=== PATIENT | female | born 1960 | race Caucasian/White ===

== ENCOUNTER → 2019-05-20 16:50 | Outpatient (CLI) | payer SELFPAY ==
[2019-05-20 16:25] VITALS: BMI 38.2
--- NOTE | 2019-05-20 16:54 | RAD_ITS ---
STUDY: X-RAY - LEFT KNEE REASON FOR EXAM: Female, 59 years old. Fall. TECHNIQUE: 4 view(s) of the knee. COMPARISON: None. FINDINGS: There is demineralization of the visualized distal femur. There is demineralization of the tibia and fibula. Normal proximal tibiofibular articulation. There is moderate degenerative arthrosis of the medial femorotibial compartment with moderate joint space narrowing. There is mild degenerative arthrosis of the lateral femorotibial compartment. There is moderate degenerative arthrosis of the patellofemoral articulation. The soft tissue structures are unremarkable. RAD/Knee 4 or More Views IMPRESSION: Tricompartmental osteoarthrosis is but with otherwise no evidence of acute fracture. Electronically Signed: Jose Maria Ibrahim DO at 18:00 EDT , Service support ,
== END ==
PROVIDERS: PCP Family Medicine; Referring Provider Physician Assistant Surgical; Visit Provider Physician Assistant Surgical
DX: S86.912A Strain of unspecified muscle(s) and tendon(s) at lower leg level, left leg, initial encounter (principal); W19.XXXA Unspecified fall, initial encounter; M17.12 Unilateral primary osteoarthritis, left knee
CPT/HCPCS: 73564

== ENCOUNTER → 2019-07-30 09:08 | Outpatient (CLI) | payer SELFPAY ==
[2019-07-22 07:54] VITALS: BMI 38.2
--- NOTE | 2019-07-30 09:09 | MRI_ITS ---
HISTORY: mechanical injury, left knee pain mostly medial, pt fell and twisted and landed on knee EXAMINATION: MR Knee W/O Contrast TECHNIQUE: Multiplanar and multisequence MR images of the left knee. IV Contrast dosage and agent: None. COMPARISON: X-rays of the left knee from May 20, 2019 FINDINGS: BONE: Marrow edema is present within the tibial plateau, medially greater than laterally, and anteriorly greater than posteriorly. No hypointense linear fracture line is perceived. No depression of cortex is identified. There is a small amount of subcortical edema at the apex of the patella as well. JOINT: A pathological enlarged effusion is present. MUSCLES: Mild diffuse muscular atrophy with fatty infiltration MENISCI: Intrasubstance myxoid degeneration is present within the anterior horn of the lateral meniscus. There is a partial root tear to the posterior horn of the lateral meniscus. It is not retracted. There is a root avulsion radial tear through the posterior horn of the medial meniscus with some degenerative changes within the meniscus. Much of the meniscus has herniated medially out of the joint. CRUCIATE LIGAMENTS: Anterior and posterior cruciate ligaments are intact. COLLATERAL LIGAMENTS: Grade 1 tear is present at the origin of the lateral collateral ligament. Minimal intrasubstance edema and likely grade 1 tear is also present at the origin of the lateral collateral meniscus CARTILAGE: Denuding of the cartilage within the medial weightbearing compartment of the knee both the tibial plateau and on the medial femoral condyle. Focal area of cartilaginous denuding is also present at the patellar apex. Chondromalacia is present within the trochlear groove both medial and lateral facets OTHER SOFT TISSUES: Popliteal cyst is present dissecting down lateral to the medial head of the gastrocnemius and then deep to the medial head of the gastrocnemius. MRI/Lower Ext Joint Only (Routine) IMPRESSION: Radial tear root avulsion of the posterior horn of the medial meniscus. Edema likely contusion or arthritic edema within the anterior aspect of the medial portion of the tibial plateau. Cartilaginous denuding on the medial femoral condyle and medial aspect of the tibial plateau. Tiny amount of edema the apex of the patella with cartilaginous distributing chondromalacia within the trochlear groove. Knee effusion. Dutton cyst. at 0612 Reported and signed by: Dutch Alcocer MD Electronically Signed: Dutch Alcocer MD at 6:11 EST Tel , Service support ,
== END ==
PROVIDERS: PCP Family Medicine; Referring Provider Orthopaedic Surgery; Visit Provider Orthopaedic Surgery
DX: S89.92XD Unspecified injury of left lower leg, subsequent encounter (principal); S80.02XD Contusion of left knee, subsequent encounter; M25.562 Pain in left knee
CPT/HCPCS: 73721

== ENCOUNTER → 2019-08-11 06:41 | Outpatient (CLI) | payer SELFPAY ==
[2019-08-05 08:19] VITALS: BMI 38.2
--- NOTE | 2019-08-11 06:42 | CT_ITS ---
CT left knee. COMPARISON: X-ray left knee May 20, 2019 FINDINGS: There is no acute fracture or dislocation. No aggressive appearing osseous lesions are present. Moderate tricompartmental osteophytosis is present. There is lateral tracking of the patella. There is moderate narrowing of the medial joint space. There is a moderate joint effusion. The ankle is normal in appearance. Mild osteophytosis is present at the superior acetabulum. No radiopaque foreign bodies are present in the soft tissues. CT/Extremity Lower without Contra IMPRESSION: Tricompartmental degenerative changes as described above. Moderate effusion. No acute fracture or dislocation. Electronically Signed: Wong Oneil, at 19:47 EST Tel , Service support ,
== END ==
PROVIDERS: PCP Family Medicine; Referring Provider Orthopaedic Surgery; Visit Provider Orthopaedic Surgery
DX: M17.12 Unilateral primary osteoarthritis, left knee (principal)
CPT/HCPCS: 73700

== ENCOUNTER 2019-09-06 13:44 | Observation (INO) | payer SELFPAY ==
[2019-08-05 08:19] VITALS: BMI 38.2
[2019-08-22 12:59] VITALS: BMI 38.2
[2019-08-30 10:07] VITALS: BP 133/89; PULSE 77; RESP 16; TEMP 36.8; O2SAT 94; BMI 37.3
--- NOTE | 2019-08-30 10:19 | SDCEKG_ITS ---
Test Reason : Blood Pressure : / mmHG Vent. Rate : 064 BPM Atrial Rate : 064 BPM P-R Int : 166 ms QRS Dur : 084 ms QT Int : 398 ms P-R-T Axes : -02 035 031 degrees QTc Int : 410 ms Normal sinus rhythm with sinus arrhythmia Normal ECG Confirmed by MARIE KHANNA, SUELLEN ([id number]), editor & co founder NEO MCGILL ([id number]) on 09/06/2019 8:11:01 AM Referred By: Manpreet Pollock Confirmed By:SUELLEN SALAZAR MD
[2019-09-06] VITALS (20 sets, daily range): BP systolic 92–130; BP diastolic 51–85; PULSE 43–69; RESP 14–114; TEMP 36.1–37.2; O2SAT 95–100; BMI 37.3
[2019-09-06 06:01] LABS: Bedside Glucose 103 mg/dL (70-110)
[2019-09-06] MEDS: Acetaminophen 500 MG Tablet 1000 MG PO ×3 (06:07→21:00)
[2019-09-06] MEDS: Celecoxib 200 MG Capsule 400 MG PO (06:07)
[2019-09-06] MEDS: Gabapentin 600 MG Tablet PO (06:07)
[2019-09-06] MEDS: Scopolamine 1mg/72hr Patch 1 PATCH TRANSDERM. (06:08)
[2019-09-06] MEDS: Magnesium Sulfate 4gm/100mL 4 GM/100 ML IV.SOLN. IV (06:20)
[2019-09-06] MEDS: Lactated Ringers 1,000 ML 100 ML IV (06:21)
[2019-09-06] MEDS: Cefazolin 2 GM in 0.9% Normal Saline 100 ML IV (07:29)
--- NOTE | 2019-09-06 07:31 | PCM.HP.BLA ---
History and Physical Date of Admission: 09/06/19 Intake Vital Signs 08/22/19 BMI 38.2 Intake Visit Reasons: left knee Allergies No Known Allergies Allergy (Verified 05/30/19 08:48) Medications acetaminophen 325 mg capsule 325 mg PO Q6H 05/20/19 [History Confirmed 08/22/19] ibuprofen 200 mg tablet 200 mg PO Q6H 05/20/19 [History Confirmed 08/22/19] PFSH Medical History (Updated 05/20/19 @ 17:50 by JANNETTE Schofield) Difficulty balancing (Acute) Fatigue (Acute) Knee pain (Acute) Limb weakness (Acute) child (Acute) Social History (Updated 08/23/19 @ 15:39 by JANNETTE Ashby) Smoking Status: Never smoker alcohol intake: never HPI left knee: Details: Parts of this documentation were recorded by a scribe, this documentation accurately reflects the service provided and the decisions made by Ganesh dejesus PA 08/22/19 1256. KEILA ENCISO is a 59 year old F here today for left knee Iovera tx prior to left TKA. DOS is set for 09/06/2019 Denies numbness, tingling or other associated symptoms. Denies any changes in medications or health history. ROS Musc Reports joint pain, Reports joint swelling Skin/Breast Reports system reviewed and no additional complaints, except as docu Neuro Yes system reviewed and no additional complaints, except as docu Ortho Exam Left Knee Skin/Wound: No ecchymosis, No erythema, No swelling Homans Sign: No 1+: Effusion Knee ROM: No ROM-Extension -20 to 0, No ROM-Flexion 0-140 (approx 110) Examination: Yes med jt line tenderness, No Lat jt line tenderness Stability: NML: Posterior Drawer, NML: Valgus 30, NML: Varus 30 Patella Grind: No Office Procedures Iovera Details:: Preoperative diagnosis : Osteoarthritis of left knee Postoperative diagnosis: Same Procedure: Cryotherapy with Iovera device to anterior femoral cutaneous nerve and 2 branches of the infrapatellar saphenous nerve III nerves in total Description of procedure: Patient was brought back to the procedure room the operative extremity was identified by both patient and physician. The PIP flexion crease was measured to the midpoint of the patella and this distance was divided in 3 resulting in 10 cm location proximal to the midpoint of the patella. This line was extended medial and lateral to the extent of the edges of the patella. This was our treatment line for the anterior femoral cutaneous nerve. A second treatment line was made 5 cm medial to the inferior pole of the patella and 5 cm distally. The leg was prepped with alcohol and Betadine. Lidocaine with epi was used along the treatment lines. Using the Iovera device treatment lines were treated with 1 minute cycles. Reproduction of paresthesias was monitored in the area of nerve distribution. Once all 3 nerves were treated across the 2 treatment lines patient was cleaned and a light dressing with 4 x 4 and Marshal wrap was applied. Patient tolerated the procedure without complication. Assessment & Plan Problems 1. Primary osteoarthritis of left knee M17.12 Plan Patient presents the office today for Iovera of the left knee prior to robotic assisted total knee arthroplasty. At this time we discussed this procedure and went through all the steps today. I did answer all of her questions regarding this procedure today. After all of her questions were answered to her satisfaction consent was signed in office today. At this time we went ahead with the treatment protocol. The leg was initially cleansed with alcohol soaked gauze pads. A sterile skin pen was then used to rosmery out the landmarks including the mid patella. That mid patella rosmery was then used to make the proximal treatment line using a one third the distance from the medial patella to the inguinal crease. The lateral and medial borders of the patella were then extended along this same line to the same one third distance. A horizontal line was then drawn indicating treatment line here. From there the treatment line was then drawn on the medial aspect of the lower leg taken 5 cm medial to the inferior pole of the patella and then 5 cm distal. Once these areas were marked and alcohol prep pad was used to wipe the area and then Betadine prep sticks were then used over the treatment area x3. An alcohol prep pad was then used to wipe off the Betadine at the treatment line. The area was then superficially anesthetized subcutaneously. Alcohol pad was then used to press on the areas that were wheeled up dispersing the contents. I did apply some sterile gloves at that point in treatment was performed on the proximal treatment line. This was then repeated on the vertical (inferior/medial) treatment line. The areas were then covered with sterile ABD pads and wrapped with an Marshal wrap. Patient is to monitor and notify of any erythema, discharge, warmth, or pain to indicate infection. Patient can ice or take an anti-inflammatory if she needs. Patient tolerated his procedure with out any discomfort other than subcutaneous anesthesia. No complications were observed. Patient can follow-up prior to her surgery as needed. This note was generated with [employer]. dictation software. It may contain incorrect words, spelling, and punctuation that were not noted in checking the note before signing. 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 There are no clinical changes since date of exam
[2019-09-06] MEDS: Bupivacaine 0.5% PF 10 ML VIAL (09:50)
[2019-09-06] MEDS: Betamethasone/Betamethasone 30 MG/5 ML Vial (09:50)
[2019-09-06] MEDS: 0.9% Normal Saline (Pres. free 10 ML Vial (09:50)
--- NOTE | 2019-09-06 10:28 | OP.PCM_ITS ---
Report of Operation Date of Procedure: 09/06/19 Description of Surgical Findings:: Preoperative diagnosis: Left knee DJD Postoperative diagnosis: Same Procedure: Left total knee arthroplasty CT guided Robotic Assisted Implant: Preethi triathlon press-fit femoral component size 4, press-fit tibial baseplate size 4, press-fit asymmetric patella size 32, polyethylene X3 size 9 CS Anesthesia: Spinal with adductor canal block Tourniquet time: 60 minutes at 300 mmHg Complications: None Condition: Stable to PACU Estimated blood loss: 100 cc Indication for procedure: This is a 1-year-old female with long standing degenerative joint disease of the knee who has failed conservative treatment and wished to proceed with elective total knee arthroplasty. Risk benefits and alternatives were reviewed including; risk of bleeding, infection, nerve artery and tissue damage, continued pain, postoperative stiffness, venous thromboembolism, need for postoperative rehabilitation, mechanical feel to the knee, and expected postoperative course. The operative CT and templating was performed with component sizing Procedure: The patient was met in the preoperative holding area. The operative extremity was identified by both patient and physician and was marked. Patient was met by anesthesia. An adductor canal block was placed by anesthesia postoperatively the patient was brought back to the operating room on a wheeled cart and transferred to the operating table in the supine position. Anesthesia was started. A well-padded tourniquet was placed on the operative extremity. The patient was prepped and draped in the usual sterile fashion. A timeout was called to ensure the proper patient procedure and extremity were being contemplated. An Esmarch was used to exsanguinate the extremity. The tourniquet was inflated. A 10 blade scalpel was used to make a midline incision down through the skin and subcutaneous tissue. Skin retractors placed. Bovie was used to perform meticulous hemostasis. full-thickness flaps were elevated medial and lateral along the joint capsule. A deep blade scalpel was used to perform a medial parapatellar arthrotomy. The knee was brought to full extension. A Bovie was used to release the soft tissues off the most proximal aspect of the medial tibial plateau a three-quarter inch curved osteotome was also used for this process. The infrapatellar fat pad was excised. The fat pad was excised partially anterior lateral portion the anterior medial was elevated from the femur. At this point our intra-articular femoral array was placed of a 45 degree angle proximal and posterior to the medial epicondyle. Our tibial array was placed greater than 1 hands breath below the incision at a 20 degree angle stab incisions were used for this case were attached and checked with the robotic software. At this point registration mendez were taken throughout the knee as well as checkpoints placed in the femur and tibia once the knee was registered then tensioned the medial and lateral ligaments with curved osteotomes and extension and 90 degrees of flexion. We then used these numbers to adjust our components within parameters to balance the knee in both flexion and extension once this was done on our monitor we then proceeded with using the robotic arm to make our tibial plateau cut and anterior posterior and chamfer cuts on the femur we then trialed and achieved the desired plan with a well- balanced knee. Lug holes were drilled in the femur the tibia preparation was completed with a fin punch and the patella was prepared by first using a caliper to ensure sufficient bone stock and a patellar reamer to remove the desired amount of bone locals were drilled for an asymmetric poly-. We then brought the knee through range of motion with excellent patellar tracking. We thoroughly irrigated the knee with a trial components were removed a posterior capsular injection with her standard cocktail was performed the aqua Michael was also used to aid in hemostasis. Betadine rinse was allowed to sit and washed out components were press-fit into place. Aricept rinse was then used followed by several more rate liters of irrigation after it was allowed to sit. Joint capsule was closed with #1 Ethibond [id number] followed by Vicryl in the subcutaneous tissues staple in the skin arrays and checkpoints were removed prior to closure all counts were correct stab incisions were closed with a stable standard dressing in the form of Mepilex for the main incision Xeroform 4 x 4 and Tegaderm over pin site holes web roll and Marshal wrap applied from the foot to the groin. Patient tolerated the procedure well she was directed to PACU in stable condition no intraoperative complications
[2019-09-06] MEDS: Lactated Ringers 1,000 ML 125 ML IV ×2 (11:00→13:51)
--- NOTE | 2019-09-06 11:03 | RAD_ITS ---
STUDY: X-RAY - LEFT KNEE REASON FOR EXAM: Female, 59 years old. POST OP TECHNIQUE: AP and lateral view(s) of the knee. COMPARISON: Comparison is made with prior examination dated May 20, 2019. FINDINGS: Normal visualized distal femur. Normal visualized proximal tibia and fibula. Normal proximal tibiofibular articulation. The patient is status post total knee replacement. There is good alignment. Postoperative soft tissue changes. RAD/Knee 1 or 2 Views IMPRESSION: Status post left total knee replacement with postoperative soft tissue changes. There is good alignment. Electronically Signed: Jeremy Larsen, at 12:27 EST , Service support ,
[2019-09-06] MEDS: Cefazolin 1 GM/50 ML BAG IV ×2 (11:30→18:21)
[2019-09-06] MEDS: dexAMETHasone 10 MG/ML Vial IV (13:00)
[2019-09-06] MEDS: Senna/Docusate Sodium 1 Tablet 2 TABLET PO (21:00)
[2019-09-07 02:43] VITALS: BP 114/48; PULSE 62; RESP 16; TEMP 36.6; O2SAT 97
[2019-09-07] MEDS: Cefazolin 1 GM/50 ML BAG IV (03:36)
[2019-09-07 05:38] LABS: Hematocrit 37.1 % (37-47); Mean Corp Hgb Conc 32.3 g/dL (32-36); Mean Corpuscular Hgb 27.9 pg (27.0-32.0); Mean Corpuscular Volume 86.3 fL (81-99); Mean Platelet Vol. 9.9 fl (6.2-12.0); Platelet Count 205 K/mm3 (150-450); RBC Distribution Width CV 12.9 % (11.6-14.6); RBC Distribution Width SD 40.3 fl (35.1-43.9); White Blood Count 14.7 K/mm3 (4.4-11.0)
[2019-09-07 05:55] LABS: Anion Gap 3 (5-15); BUN 9 mg/dL (7-18); BUN/Creat Ratio 11.6 RATIO (10-20); Calcium,Total 9.1 mg/dL (8.5-10.1); Chloride 105 mmol/L (98-107); Creatinine, Serum 0.78 mg/dL (0.55-1.02); EST Glomerular Filtration Rate 80 mL/min (>60); Est Glom Filt Rate - Afr Amer 97 mL/min (>60); Estimated Creatinine Clearance 69.02 ml/min; Glucose 140 mg/dL (74-106); Potassium 4.3 mmol/L (3.5-5.1); Sodium Level 137 mmol/L (136-145)
[2019-09-07] MEDS: Acetaminophen 500 MG Tablet 1000 MG PO (06:24)
[2019-09-07] MEDS: APIXABAN 2.5 MG TABLET PO (06:30)
[2019-09-07 08:04] VITALS: BP 123/66; PULSE 61; RESP 18; TEMP 36.9; O2SAT 99
[2019-09-07] MEDS: Senna/Docusate Sodium 1 Tablet 2 TABLET PO (08:13)
[2019-09-07] MEDS: Ketorolac 15 MG/ML Vial IV (08:21)
[2019-09-07] MEDS: 0.9% Saline Lock 10 ML Syringe IV (08:21)
--- NOTE | 2019-09-07 09:30 | CASEMGMT ---
MERCEDEZ SOUZA Face to Face with patient for initial transition planning/care coordination assessment. MERCEDEZ SOUZA introduced self and role at [facility]. Patient sitting in chair, alert and oriented. Patient willing to participate in assessment and is able to answer all questions appropriately. Care providers, pharmacy, and demographics verified. Patient wishes to discharge home and thought outpatient therapy was setup with [facility]. Patient states she has no further needs or concerns at this time. CM to follow for discharge planning needs that may arise. PCP: Marquita Specialists: None Preferred Pharmacy: [facility] Insurance: [employer] Prescription Benefit: yes Living Will/HPOA: yes, Noel Culver LNOK: Living Arrangements: Patient lives with in 1 story home with 2 steps to enter the home. Transportation: , family, friends DME/HHC: Patient states she has walker, grab bars, and raised toilet at home. MERCEDEZ SOUZA called [facility] and patient is not scheduled for therapy. MERCEDEZ SOUZA made appointment for next available which is for today at 1330 otherwise nothing till next week. MERCEDEZ SOUZA called Dr. Pollock to update regarding only appt for therapy is for today. MERCEDEZ SOUZA updated patient and she is agreeable to appointment for today. Disposition Plan: Patient to discharge home with outpatient therapy, family support, and follow-up plans in place. Alejandrina GOLDBERG, RN, CM
--- NOTE | 2019-09-07 12:25 | DCINST_ITS ---
Discharge Diet: No Restrictions Weight Bearing Status: Weight bearing as tolerated Call your doctor if you observe: Shortness of breath, Chest pain Additional Instructions: Ice and elevate next week while not ambulating. Encourage ambulation weightbearing as tolerated. Encourage FULL knee extension and flexion 1 time EVERY time you get up and down and MULTIPLE times per day. Begin showering postop day #3. Remove the dressing prior to shower gently wash with warm water and antibacterial soap then pat dry place ABD pad and BETZAIDA hose over top. This is to be done daily. do not submerge for 3 weeks. If not showering daily must clean incision and change dressing daily. Do not allow animals near incision keep clean. Follow anticoagulation recommendations. Start physical therapy as directed in the hospital. call Dr. Pollock with any concerns. Allergies/Adverse Reactions: Allergies No Known Allergies Allergy (Verified 08/30/19 09:58) Medications to take at Discharge Acetaminophen [Tylenol] 1,000 mg PO Q6H PRN #100 tab 09/07/19 Apixaban [Eliquis] 2.5 mg PO BID #28 tab 09/07/19 Oxycodone [Oxyir] 5 - 10 mg PO Q4H PRN PRN #60 tablet 09/07/19 The following prescriptions were given: Apixaban [Eliquis] 2.5 mg PO BID #28 tab Transmission Status: Pending to [facility] Oxycodone [Oxyir] 5 - 10 mg PO Q4H PRN PRN #60 tablet PRN Reason: Pain Score 4-10/10 Transmission Status: Sent to [facility] Acetaminophen [Tylenol] 1,000 mg PO Q6H PRN #100 tab Transmission Status: Pending to [facility] Primary Care Physician: Waqar Juárez III, MD [Primary Care Provider] - Test Results: Test results from this visit will be discussed in further detail at your follow- up appointment, if applicable. Please Follow Up With: [employer] When: Today Please Follow Up With: Manpreet Pollock DO - 2 weeks
--- NOTE | 2019-09-07 12:26 | PCM.DC.SUM ---
Discharge Date and Diagnosis Date of Admission: 09/06/19 Date of Discharge: 09/07/19 Hospital Course and Treatment Summary of Care Provided: The patient is a 59 year old F the patient has with long-standing history of knee DJD and has failed conservative treatment. Patient wished to undergo elective robotic assisted total knee arthroplasty and underwent the aforementioned procedure on the admission date without complications. patient did receive pre-and postoperative antibiotics which were discontinued within 23 hours postoperatively. patient did receive a spinal anesthesia and a adductor canal block and the pain was controlled postoperatively with p.o. and IV pain medication. There was minimal intraoperative blood loss he did receive 2 g of tranexamic acid and his vital signs and labs were stable postoperatively and patient did not require a blood transfusion. patient was seen by physical therapy and did progress with his ambulation. Postoperatively was started on both mechanical and chemical DVT prophylaxis for which patient will continue Eliquis 2.5 mg twice daily for 2 additional weeks post hospital discharge. Patient Marshal wrap was removed in the morning of postop day 1 without any concerning signs. Silverlon dressing will stay on for 72 hours postoperatively at which time patient will begin showering on postop day #3 with daily dressing changes. Encouraged patient to achieve full range of motion as soon as possible, Patient will start outpatient physical therapy and will follow-up in the office in 2 weeks for wound check. There is no intrahospital complications . Subjective: Patient doing well ambulating halls still has some effect from block with numbness to the ankle but able to move the ankle with no motor deficit no other complaints eating and drinking well - Physical Exam Vitals/I&O's: Vital Signs Temp Pulse Resp BP Pulse Ox 98.4 F 61 18 123/66 H 99 09/07/19 08:04 09/07/19 08:04 09/07/19 08:04 09/07/19 08:04 09/07/19 08:04 Oxygen Flow Rate (L/min) 2 Oxygen Delivery Method Room Air Weight: 228 lb 2.855 oz Body Mass Index (BMI) 37.3 Intake and Output for Last 24 Hours 09/05/19 09/06/19 09/07/19 23:59 23:59 23:59 Intake Total 4561.25 / 4911.25 993.25 / 993.25 Output Total 450 / 450 Balance 4111.25 / 4461.25 993.25 / 993.25 General: Alert, Oriented x3, Cooperative, No apparent distress Extremities: - - Dressing clean dry and intact compartment soft neurovascular intact EHL tibialis anterior gastrocsoleus palpable pedal pulses brisk capillary refill some decrease in station to light touch to the ankle Laboratory Results 09/07/19 05:05: WBC 14.7 H, RBC 4.30, Hgb 12.0, Hct 37.1, MCV 86.3, MCH 27.9, MCHC 32.3, RDW Std Deviation 40.3, RDW Coeff of Daja 12.9, Plt Count 205, MPV 9.9 09/07/19 05:05: Sodium 137, Potassium 4.3, Chloride 105, Carbon Dioxide 29.0, Anion Gap 3 L, BUN 9, Creatinine 0.78, Estim Creat Clear Calc 69.02, Est GFR (MDRD) Af Amer 97, Est GFR (MDRD) Non-Af 80, BUN/Creatinine Ratio 11.6, Glucose 140 H, Calcium 9.1 Current Medications Acetaminophen (Tylenol) 1,000 mg PO Q8 [facility] Last Admin: 09/07/19 06:24 Dose: 1,000 mg Documented by: Apixaban (Eliquis) 2.5 mg PO BID [facility] Last Admin: 09/07/19 06:30 Dose: 2.5 mg Documented by: Hydromorphone HCl (Dilaudid Inj) 0.5 mg IV Q2H PRN PRN PRN Reason: Pain Score 6-10/10 Lactated Ringer's () 1,000 mls @ 125 mls/hr IV .Q8H [facility] Last Admin: 09/07/19 08:05 Dose: Not Given Documented by: Sodium Chloride () 250 mls @ 15 mls/hr IV .[id number] PRN PRN Reason: Saline Flush Sodium Chloride () 250 mls @ 15 mls/hr IV .[id number] PRN PRN Reason: Additional IVPB Infusion Insulin Human Lispro (Humalog Kwikpen (Bkc)) 1 - 6 unit SC Q4H PRN PRN; Protocol PRN Reason: BG>/= 180, SEE PROTOCOL Ketorolac Tromethamine (Toradol (Bkc)) 15 mg IV Q6H PRN PRN PRN Reason: Pain Score 1-5/10 Last Admin: 09/07/19 08:21 Dose: 15 mg Documented by: Ondansetron HCl (Zofran) 4 mg IV Q6H PRN PRN PRN Reason: NAUSEA Oxycodone HCl (Oxyir) 5 - 10 mg PO Q4H PRN PRN PRN Reason: Pain Score 4-10/10 Senna/Docusate Sodium (Senokot-S, Natalie-Colace) 2 tablet PO BID [facility] Last Admin: 09/07/19 08:13 Dose: 2 tablet Documented by: Sodium Chloride () 10 - 40 ml IV UD PRN PRN Reason: SALINE FLUSH Last Admin: 09/07/19 08:21 Dose: 10 ml Documented by: Discharge Diet: No Restrictions Weight Bearing Status: Weight bearing as tolerated Call your doctor if you observe: Shortness of breath, Chest pain Home Medications: Medications to take at Discharge Acetaminophen [Tylenol] 1,000 mg PO Q6H PRN #100 tab 09/07/19 Apixaban [Eliquis] 2.5 mg PO BID #28 tab 09/07/19 Oxycodone [Oxyir] 5 - 10 mg PO Q4H PRN PRN #60 tablet 09/07/19 Following Prescrptions Were Given to Patient: Apixaban [Eliquis] 2.5 mg PO BID #28 tab Transmission Status: Pending to [facility] Oxycodone [Oxyir] 5 - 10 mg PO Q4H PRN PRN #60 tablet PRN Reason: Pain Score 4-10/10 Transmission Status: Sent to [facility] Acetaminophen [Tylenol] 1,000 mg PO Q6H PRN #100 tab Transmission Status: Pending to [facility] Primary Care Physician: Waqar Juárez III, MD [Primary Care Provider] - Please Follow Up With: [employer] When: Today Please Follow Up With: Manpreet Pollock DO - 2 weeks Additional Instructions: Ice and elevate next week while not ambulating. Encourage ambulation weightbearing as tolerated. Encourage FULL knee extension and flexion 1 time EVERY time you get up and down and MULTIPLE times per day. Begin showering postop day #3. Remove the dressing prior to shower gently wash with warm water and antibacterial soap then pat dry place ABD pad and BETZAIDA hose over top. This is to be done daily. do not submerge for 3 weeks. If not showering daily must clean incision and change dressing daily. Do not allow animals near incision keep clean. Follow anticoagulation recommendations. Start physical therapy as directed in the hospital. call Dr. Pollock with any concerns. Medical Necessity - Tobacco Use Smoking Status: Never smoker Tobacco Use: Non-smoker Meaningful Use Info Meaningful Use Diagnoses (Choose all that apply): None applicable
[2019-09-07 13:07] VITALS: BP 137/70; PULSE 71; RESP 18; TEMP 36.6; O2SAT 100
== END 2019-09-07 13:17 | disposition home or self-care (01) ==
LOC: SDC 09-07 07:57
PROVIDERS: Admitting Provider Orthopaedic Surgery; PCP Family Medicine; Referring Provider Orthopaedic Surgery; Visit Provider Orthopaedic Surgery
PROC: 0SRD0JZ Replacement of Left Knee Joint with Synthetic Substitute, Open Approach (ICD-10-PCS; CPT 27447; principal; 2019-09-06 07:00)
DX: M17.12 Unilateral primary osteoarthritis, left knee (principal); I49.8 Other specified cardiac arrhythmias
CPT/HCPCS: 01400; 27447; 64447; S2900; 36415; 73560; 80048; 82962; 85027; 87081; 93005; 96361; 96365; 96366; 96375; 97110; 97116; 97163; 97166; 97530; 97535; 99218; C1776; J7120; A4216; G0378; G0379; J0702; J3490

== ENCOUNTER → 2019-09-19 16:08 | Outpatient (CLI) | payer SELFPAY ==
[2019-09-19 15:19] VITALS: BMI 37.3
[2019-09-19 16:13] LABS: Bacteria 0 SEEN /hpf (None Seen); Mucous, Urine 0 SEEN /hpf (<or=2+)
[2019-09-19 17:35] LABS: Color, Urine Yellow (Yellow); Glucose, Dipstick Normal (Normal); Ketone-Dipstick Negative (Negative); Leukocyte Esterase-Dipstick 25 /ul (Negative); Nitrite-Dipstick Negative (Negative); Occult Blood-Urine 10 /ul (Negative); Protein-Dipstick Negative (Negative); Urine Bilirubin Dipstick Negative (Negative); Urine Clarity Clear (Clear); Urine Urobilinogen Normal (Normal)
[2019-09-19 18:17] LABS: Red Blood Cells-Urine 0-5 SEEN /hpf (0-5); Squamous Epithelial Cells - UA 0-5 SEEN /hpf (5-10); White Blood Cells 0-5 SEEN /hpf (0-5)
== END ==
PROVIDERS: PCP Family Medicine; Referring Provider Orthopaedic Surgery; Visit Provider Orthopaedic Surgery
DX: R35.0 Frequency of micturition (principal)
CPT/HCPCS: 81001

== ENCOUNTER 2019-10-17 14:00 | Outpatient (RCR) | payer OTHER, SELFPAY ==
[2019-09-06 13:35] VITALS: BMI 37.3
--- NOTE | 2019-09-07 18:07 | HP.PTEVAL_ITS ---
Patient's Visit Information KEILA ENCISO is a 59 year old F referred to Physical Therapy by Manpreet Pollock DO with a diagnosis of L TKA. Date of Evaluation: 09/07/19 Physical Therapist: Keila Sinha, PT, Cert MDT - Visit Plan Frequency: 2-3x /Week Duration: 4-6 Weeks Plan: MONITOR INCISION. GAIT TRAINING. LLE ROM, STRETCHING AND STRENGTHENING PER PROTOCOL. - Subjective Findings: Work/Leisure: POSSIBLY UNEMPLOYEED. HAS NOT BEEN BACK TO HER JOB AT [employer] SINCE JUL 17 2019 AND ISN'T SURE IF SHE IS GOING TO TRY TO GO BACK OR NOT. Disability: NO. Present symptoms: LEFT KNEE PAIN. ENTIRE LEFT LEG IS NUMB FROM A BLOCK FOR PAIN. THE NUMBESS IS COMING OUT OF HER FOOT. Present since: MARCH 01 2019. Pain Scale: WORST 7, LEAST 0/10. Currently: 08/12. Commenced as a result of: HITTING KNEE AND THEN TWISTING IT. Symptoms at onset: LEFT KNEE PAIN. Worse: PHYSICAL THERAPY, GETTING INTO THE CAR, WEIGHT BEARING ON IT, GETTING UP AND DOWN FROM THE TOLIET. Better: POLAR ICE, LYING IN BED, SITTING. Disturbed sleep: YES. Previous history/Previous treatment: UNREMARKABLE. Treatment this episode: PT IN THE HOSPITAL. Gait: LIMPING ON LLE WITH WALKER. Accidents: NO. Unexplained weight loss: NO. Imaging: MRI AND X-RAY BEFORE SURGERY SHOWED CARTILAGE DEGENERATION AND TORN MENISCUS. PMH: UNREMARKABLE. Recent major surgery: UNREMARKABLE. PLOF (Prior Level of Function): UNLIMITED - Objective THIS PATIENT AMBULATES INDEP'LY INTO PT WITH A FWW. SHE IS UE DEPENDENT TO TRANSFER FROM SIT TO STAND AND REVERSE. SHE IS DEPENDENT ON THE WALKER FOR GAIT. SHE IS PARTIALLY WEIGHT BEARING ON THE LLE AND LIMPING WITH DECREASED AKILA STRIDE LENGTH. SHE IS ALSO WALKING ON A PARTIALLY BENT KNEE. SHE JUST GOT OUT OF THE HOSPITAL A FEW HOURS AGO AND THIS PT GAVE HER A RIDE BACK TO THE TREATMENT ROOM IN A WHEELCHAIR. SHE NEEDS ASSIST EITHER WITH HER RIGHT LE OR CAREGIVER TO GET HER LLE ON THE TABLE TRANSFERRING FROM SIT TO SUPINE. AKILA LE LIGHT TOUCH SENSATION IS INTACT BUT PATIENT REPORTS TINGLING WITH TESTING OF THE LEFT LLE (SEE SUBJECTIVE). SHE HAS MODERATE SWELLING OF THE LEFT KNEE. RIGHT LE STRENGTH AND ROM IS WFL. RIGHT LE: HIP 3-/5, KNEE 2/5, ANKLE 4/5. LEFT KNEE ROM IN SUPINE WITH A HEEL SLIDE = -9 DEG TO 95 DEG. INCISION IS NOT VISIBLE DUE TO BANDAGING. PATIENT IS WEARING ABOVE THE KNEE AKILA BETZAIDA HOSE. TREATMENT: HEP INSTRUCTION FOR AP'S, HEEL SLIDES, QS'S, GS'S, SAQ'S AND KNEE FLEXION IN SITTING. - Goals Goal 1:: PATIENT WILL BE ABLE TO AMBULATE INDEP'LY AND SAFE'LY ON ALL SURFACES WITH LEAST ASSISTIVE DEVICE. Goal Time Frame: 4-6 Weeks Goal 2:: IMPROVE FUNCTIONAL ROM OF LEFT LE Goal Time Frame: 4-6 Weeks Goal 3:: IMPROVE FUNCTIONAL STRENGTH OF LEFT LE Goal Time Frame: 4-6 Weeks Goal 4:: PATIENT WILL BE INDEP WITH A HEP FOR CONTINUED IMPROVEMENT ONCE FORMAL PHYSICAL THERAPY CONCLUDES. Goal Time Frame: 4-6 Weeks - Rehabilitation Potential Rehabilitation Potential: Good - Anticipated Interventions Patient/Client Instruction: Educate patient on: Condition, Plan of Care, Risk Factors, Benefits of Fitness Program For the Purpose of:: To improve self management Therapeutic Exercise to Include: Strength training, Endurance training, Balance training, Flexibilty training, Gait and locomotor training, Active ROM For the Purpose of:: To decrease pain, To decrease swelling/inflammation, To increase ROM, To improve muscle performance and motor function, To increase tolerance to activity/condition/position, To improve ability of physical actions for home/community/work/leisure, To improve gait and locomotor functions Cryotherapy (ice pack, ice massage): Yes For the Purpose of:: To decrease pain, To decrease swelling/inflammation Thank you for the opportunity to evaluate your patient. For Medicare and Medicare HMO plans, please review the plan of care and approve it. It will need to be FAXED BACK to us at [phone] for Medicare purposes. For Medicare only, by signing this I certify the plan of care. Please let me know if there are questions or concerns regarding this plan of care. Physician Signature: D ate:
--- NOTE | 2019-09-23 14:57 | HP.PTREVAL ---
Manpreet Pollock, DO, It has been my pleasure to treat KEILA ENCISO over the last 8 visits for L TKA - 09/06/19. Please see the progress note below for an update on the physical therapy plan of care! Subjective: PATIENT REPORTS THE MUSCLE RELAXER IS HELPING. STATES DR. CARLISLE WANTS HER TO GET TO 120 DEG OF BEND. HAD BABAK OUT THURSDAY AT 2 WKS PO). DEWEY REPORTS SHE IS STILL WEARING HER BETZAIDA HOSE BECAUSE SHE IS STILL GETTING SOME SWELLING AND TINGLING IN HER ANKLE AND CALF. Objective/Function: PATIENT WAS SEEN TODAY FOR RE-ASSESSMENT OF PROGRESS TOWARD THE SET PT GOALS AND THE NEED FOR FURTHER PHYSICAL THERAPY VS READINESS FOR DISCHARGE. UPON EXAM TODAY: PATIENT AMBULATED INTO PT LIMPING ON HER LLE WITHOUT ANY ASSISTIVE DEVICES. STATES SHE JUST STOPPED USING THE WALKKER YESTERDAY. THIS PT DID GAIT TRAINING WITH A STRAIGHT CANE WITH PATIENT DEMONSTRATING MUCH MORE NORMALIZED GAIT WITH CANE VS WITHOUT. PATIENT IS MAKING GOOD PROGRESS TOWARD ALL PT GOALS AND IS A GOOD CANDIDATE TO CONTINUE FORMAL PT AT THIS TIME BASED ON PROGRESS MADE AND ROOM FOR MORE IMPROVEMENT. Plan Plan: MONITOR INCISION. GAIT TRAINING. LLE ROM, STRETCHING AND STRENGTHENING PER PROTOCOL. Goals Goal 1:: PATIENT WILL BE ABLE TO AMBULATE INDEP'LY AND SAFE'LY ON ALL SURFACES WITH LEAST ASSISTIVE DEVICE. Goal Time Frame: 4-6 Weeks Goal Progress: Progressing Goal 2:: IMPROVE FUNCTIONAL ROM OF LEFT LE Goal Time Frame: 4-6 Weeks Goal Progress: Progressing Goal 3:: IMPROVE FUNCTIONAL STRENGTH OF LEFT LE Goal Time Frame: 4-6 Weeks Goal Progress: Progressing Goal 4:: PATIENT WILL BE INDEP WITH A HEP FOR CONTINUED IMPROVEMENT ONCE FORMAL PHYSICAL THERAPY CONCLUDES. Goal Time Frame: 4-6 Weeks Goal Progress: Progressing Anticipated Interventions Patient/Client Instruction: Educate patient on: Condition, Plan of Care, Risk Factors, Benefits of Fitness Program For the Purpose of:: To improve self management Therapeutic Exercise to Include: Strength training, Endurance training, Balance training, Flexibilty training, Gait and locomotor training, Active ROM For the Purpose of:: To decrease pain, To decrease swelling/inflammation, To increase ROM, To improve muscle performance and motor function, To increase tolerance to activity/condition/position, To improve ability of physical actions for home/community/work/leisure, To improve gait and locomotor functions Cryotherapy (ice pack, ice massage): Yes For the Purpose of:: To decrease pain, To decrease swelling/inflammation Please do not hesitate to contact me at [phone] by phone or if you have questions or concerns regarding this new plan of care! Sincerely, Keila Sinha, PT, Cert MDT
--- NOTE | 2019-10-17 14:30 | HP.PTREVAL_ITS ---
Manpreet Pollock, , It has been my pleasure to treat CHRISTINA ENCISO over the last 18 visits for L TKA - 09/06/19. Please see the progress note below for an update on the physical therapy plan of care! Subjective: PATIENT REPORTS NO PAIN RIGHT NOW JUST KNEE TIGHTNESS. STATES SHE IS PLANNING TO JOIN [email or web address] AND [employer] SOON POSSIBLE. Objective/Function: PATIENT WAS SEEN TODAY FOR RE-ASSESSMENT OF PROGRESS TOWARD THE SET PT GOALS AND THE NEED FOR FURTHER PHYSICAL THERAPY VS READINESS FOR DISCHARGE. PATIENT HAS MADE GREAT PROGRESS WITH PT AND IS INDEP WITH A HEP AND HAS BEEN INSTRUCTED IN SELF PROGRESSION WITH GOOD RETURN COMMUNICATION. UPON EXAM TODAY: PATIENT DEMO'S INDEP GAIT INTO PT WITHOUT ASSISTIVE DEVICE AND MILD LIMP ON LLE. SHE IS ABLE TO TRANSFER INDEP'LY FROM SIT TO STAND WITHOUT UE ASSIST. PATIENT HAS FULL LEFT KNEE EXT TO 116 DEG FLEXION IN SUPINE WITH A HEEL SLIDE AND SELF ASSISTING WITH A TOWEL. LLE STRENGTH: HIP 4/5, KNEE EXT 3-/5, KNEE FLEX 4/5 IN AVAILABLE ROM, ANKLE 5/5. Plan Plan: HOLD CHART PENDING FOLLOW UP WITH ORTHO. PATIENT AGREEABLE. Goals Goal 1:: PATIENT WILL BE ABLE TO AMBULATE INDEP'LY AND SAFE'LY ON ALL SURFACES WITH LEAST ASSISTIVE DEVICE. Goal Time Frame: 4-6 Weeks Goal Progress: Goal Met Goal 2:: IMPROVE FUNCTIONAL ROM OF LEFT LE Goal Time Frame: 4-6 Weeks Goal Progress: Goal Met Goal 3:: IMPROVE FUNCTIONAL STRENGTH OF LEFT LE Goal Time Frame: 4-6 Weeks Goal Progress: Goal Met Goal 4:: PATIENT WILL BE INDEP WITH A HEP FOR CONTINUED IMPROVEMENT ONCE FORMAL PHYSICAL THERAPY CONCLUDES. Goal Time Frame: 4-6 Weeks Goal Progress: Goal Met Anticipated Interventions Patient/Client Instruction: Educate patient on: Condition, Plan of Care, Risk Factors, Benefits of Fitness Program For the Purpose of:: To improve self management Therapeutic Exercise to Include: Strength training, Endurance training, Balance training, Flexibilty training, Gait and locomotor training, Active ROM For the Purpose of:: To decrease pain, To decrease swelling/inflammation, To increase ROM, To improve muscle performance and motor function, To increase tolerance to activity/condition/position, To improve ability of physical actions for home/community/work/leisure, To improve gait and locomotor functions Cryotherapy (ice pack, ice massage): Yes For the Purpose of:: To decrease pain, To decrease swelling/inflammation Please do not hesitate to contact me at [phone] by phone or if you have questions or concerns regarding this new plan of care! Sincerely, Christina Sinha, PT, Cert MDT
--- NOTE | 2019-12-04 10:44 | HP.PTDCSUM ---
It has been my pleasure to treat CHRISTINA ENCISO referred by Manpreet Pollock DO, with the diagnosis of L TKA - 09/06/19 for a total of 18 visit(s). Discharge Date: Please see the following information for a summary of their discharge status. Subjective: PATIENT REPORTS NO PAIN RIGHT NOW JUST KNEE TIGHTNESS. STATES SHE IS PLANNING TO JOIN [employer] SOON POSSIBLE. Left Knee Pain Intensity (Out of 10): 0 % Improvement: 90 Objective/Function: PATIENT WAS SEEN TODAY FOR RE-ASSESSMENT OF PROGRESS TOWARD THE SET PT GOALS AND THE NEED FOR FURTHER PHYSICAL THERAPY VS READINESS FOR DISCHARGE. PATIENT HAS MADE GREAT PROGRESS WITH PT AND IS INDEP WITH A HEP AND HAS BEEN INSTRUCTED IN SELF PROGRESSION WITH GOOD RETURN COMMUNICATION. UPON EXAM TODAY: PATIENT DEMO'S INDEP GAIT INTO PT WITHOUT ASSISTIVE DEVICE AND MILD LIMP ON LLE. SHE IS ABLE TO TRANSFER INDEP'LY FROM SIT TO STAND WITHOUT UE ASSIST. PATIENT HAS FULL LEFT KNEE EXT TO 116 DEG FLEXION IN SUPINE WITH A HEEL SLIDE AND SELF ASSISTING WITH A TOWEL. LLE STRENGTH: HIP 4/5, KNEE EXT 3-/5, KNEE FLEX 4/5 IN AVAILABLE ROM, ANKLE 5/5. Goal 1:: PATIENT WILL BE ABLE TO AMBULATE INDEP'LY AND SAFE'LY ON ALL SURFACES WITH LEAST ASSISTIVE DEVICE. Goal Progress: Goal Met Goal 2:: IMPROVE FUNCTIONAL ROM OF LEFT LE Goal Progress: Goal Met Goal 3:: IMPROVE FUNCTIONAL STRENGTH OF LEFT LE Goal Progress: Goal Met Goal 4:: PATIENT WILL BE INDEP WITH A HEP FOR CONTINUED IMPROVEMENT ONCE FORMAL PHYSICAL THERAPY CONCLUDES. Goal Progress: Goal Met Plan: HOLD CHART PENDING FOLLOW UP WITH ORTHO. PATIENT AGREEABLE. If there are questions or concerns regarding this patient's physical therapy, please feel free to call me at [phone]. Thank you for the referral of this patient. Sincerely, Christina Sinha, PT, Cert MDT
== END 2019-10-17 19:00 | disposition home or self-care (01) ==
LOC: PT 14:00
PROVIDERS: PCP Family Medicine; Referring Provider Orthopaedic Surgery; Visit Provider Orthopaedic Surgery
DX: Z96.652 Presence of left artificial knee joint (principal); Z98.890 Other specified postprocedural states
CPT/HCPCS: 97110; 97140; 97162; 97164; 97530